=== PATIENT | female | born 1950 | race Caucasian/White ===

== ENCOUNTER → 2018-03-25 20:23 | Outpatient (CLI) | payer MEDICARE ==
[2011-12-10 06:40] VITALS: BMI 40.6
== END | disposition home or self-care (01) ==
LOC: D.MAMMO 10:30
DX: R92.8 Other abnormal and inconclusive findings on diagnostic imaging of breast (principal)

== ENCOUNTER 2019-06-05 09:00 | Outpatient (CLI) | payer MEDICARE, OTHER ==
[2011-12-10 06:40] VITALS: BMI 40.6
== END 2019-06-05 10:00 | disposition home or self-care (01) ==
LOC: D.MAMMO 09:00
PROVIDERS: ATTEND Family Medicine
DX: Z12.31 Encounter for screening mammogram for malignant neoplasm of breast (principal)

== ENCOUNTER 2021-01-26 10:30 | Outpatient (CLI) | payer MEDICARE, OTHER ==
[2011-12-10 06:40] VITALS: BMI 40.6
== END 2021-01-26 11:00 | disposition home or self-care (01) ==
LOC: D.MAMMO 10:30
PROVIDERS: ATTEND Family Medicine
DX: Z12.31 Encounter for screening mammogram for malignant neoplasm of breast (principal)